=== PATIENT | male | born 1945 | race Caucasian/White ===

== ENCOUNTER 2020-04-15 00:26 | Outpatient (CLI) | payer MEDICARE, SELFPAY ==
[2020-04-15 18:58] LABS: SARS-CoV-2 RNA PCR Negative
== END 2020-04-15 00:27 | disposition home or self-care (01) ==
LOC: ANHCOVIDDT 00:26
PROVIDERS: PCP Internal Medicine; Visit Provider Internal Medicine Gastroenterology
DX: Z01.818 Encounter for other preprocedural examination (principal); Z11.59 Encounter for screening for other viral diseases
CPT/HCPCS: 87635; C9803; U0003

== ENCOUNTER 2020-04-17 01:41 | Day surgery (SDC) | payer MEDICARE, SELFPAY ==
[2020-04-08 14:29] VITALS: BMI 28.2
[2020-04-17 08:54] VITALS: BP 145/65; PULSE 77; RESP 18; TEMP 36.6; O2SAT 96; BMI 27.3
--- NOTE | 2020-04-17 09:02 | PM.HPGS ---
History of Present Illness History of Present Illness Consent: Risks, benefits, and alternatives have been discussed and questions answered. Patient agrees to proceed with procedure. Chief complaint: HX of Polyps Narrative: Willie Randolph is a 75 year old W male referred for screening colonoscopy secondary history of adenomatous polyps. Patient had 2 adenomas removed 5 years ago. Returns now for surveillance examination. Patient is asymptomatic. [facility] Social History Social History (Updated 03/20/20 @ 10:08 by Sofia Parks [facility]) Smoking status: Never smoker Alcohol intake: current Substance use: never Gender identity (if verbalized by the patient): Male Meds Home Medications and Allergies Home Medications Medication Instructions Recorded Confirmed Type simvastatin 40 mg tablet 40 mg PO DAILY 03/05/20 04/17/20 History Allergies Allergy/AdvReac Type Severity Reaction Status Date / Time No Known Allergies Allergy Verified 04/17/20 08:54 Vital Signs Vital Signs - 24 hr 04/17/20 08:54 Temperature 36.6 C Pulse Rate 77 Respiratory Rate 18 Blood Pressure 145/65 H Pulse Oximetry 96 Exam Const: Orientation/consciousness: patient oriented x3 Resp: Auscultation: clear to auscultation bilaterally Cardio: Rate: regular rate Rhythm: regular rhythm Heart sounds: no murmurs GI: GI Palp: Yes Soft to palpation, No Tenderness to palpation present (GI), Yes No hepatosplenomegaly present and No Palpable mass present Auscultation: normal bowel sounds Neuro: General: patient oriented x3 and no focal motor deficits Extrem: General: no pedal edema Assessment and Plan Additional Plan Screening colonoscopy secondary history of adenomatous polyps
[2020-04-17] MEDS: LACTATED RINGERS 1,000 ML 150 ML IV CONT (09:10)
--- NOTE | 2020-04-17 09:22 | WPDANESEPPF ---
Anes - Initial Pre Proc Eval Procedure: Operation Date: 04/17/20 10:00 Proposed Procedures p Colonoscopy - Pancho Alonzo MD Date/Time: 04/17/20 09:22 Surgeon: Pancho Alonzo MD Pre Op Diagnosis: HX of Polyps Patient Data Age: 75 Gender: M Height: 6 ft 1 in Weight: 94.1 kg Last Vital Signs Temp 97.8 F 04/17/20 08:54 Pulse 77 04/17/20 08:54 Resp 18 04/17/20 08:54 BP 145/65 H 04/17/20 08:54 Pulse Ox 96 04/17/20 08:54 Allergies Allergy/AdvReac Type Severity Reaction Status Date / Time No Known Allergies Allergy Verified 04/17/20 08:54 Home Medications Medication Instructions Recorded Confirmed Type simvastatin 40 mg tablet 40 mg PO DAILY 03/05/20 04/17/20 History Patient hx anesthesia problems: none Family hx anesthesia problems: none PMFSH Past Medical History Medical History (Updated 04/17/20 @ 09:22 by Gonsalo Lopez MD) Hypercholesterolemia Prostate cancer Surgical History Surgical History Hx of prostatectomy Social History Social History (Updated 03/20/20 @ 10:08 by Sofia Parks CMA) Smoking status: Never smoker Alcohol intake: current Substance use: never Gender identity (if verbalized by the patient): Male Anes - Eval Final PreProcedure Day of Procedure 04/17/20 09:22 Patient weight: obese Heart: regular rate and rhythm Lungs: clear to auscultation Airway: Mallampati scale class II Neurological: alert and oriented Last oral intake: >/= 8 hours ASA classification: III Emergent: no Anesthetic plan: proceed Anesthesia type and monitoring: general GIVS and standard monitoring Informed Consent: The patient's anesthetic plan and its attendant risks and benefits were discussed with the patient/family/POA. Questions were solicited and answers provided to the satisfaction of the patient/family/POA.
[2020-04-17 09:52] VITALS: BP 128/67; PULSE 75; RESP 18; O2SAT 95
[2020-04-17 10:27] VITALS: BP 113/69; PULSE 69; RESP 20; O2SAT 96
[2020-04-17 10:28] VITALS: BP 113/78; PULSE 70; RESP 22; O2SAT 96
== END 2020-04-17 10:39 | disposition home or self-care (01) ==
PROVIDERS: PCP Internal Medicine; Visit Provider Internal Medicine Gastroenterology
PROC: 0DJD8ZZ Inspection of Lower Intestinal Tract, Via Natural or Artificial Opening Endoscopic (ICD-10-PCS; CPT 45378; principal; 2020-04-17 10:00)
DX: Z12.11 Encounter for screening for malignant neoplasm of colon (principal); D12.5 Benign neoplasm of sigmoid colon; K63.5 Polyp of colon; K57.30 Diverticulosis of large intestine without perforation or abscess without bleeding; K64.8 Other hemorrhoids; E78.00 Pure hypercholesterolemia, unspecified; Z85.46 Personal history of malignant neoplasm of prostate; E66.9 Obesity, unspecified; Z68.27 Body mass index [BMI] 27.0-27.9, adult
CPT/HCPCS: 45385; 87635; 88305; C9803; J2704; J7120; U0003

== ENCOUNTER 2023-09-12 07:00 | Outpatient (NON) | payer MEDICARE, SELFPAY | END 2023-09-12 07:01 | disposition home or self-care (01) | PROVIDERS: PCP Internal Medicine; Visit Provider Internal Medicine Gastroenterology | DX: Z12.11 Encounter for screening for malignant neoplasm of colon (principal) | CPT/HCPCS: 88305 ==

== ENCOUNTER 2023-09-12 09:43 | Day surgery (SDC) | payer MEDICARE, SELFPAY ==
[2023-09-07 09:28] VITALS: BMI 27.3
--- NOTE | 2023-09-12 09:33 | P.PNAN_ITS ---
Anes - Initial Pre Proc Eval Procedure: Operation Date: 09/12/23 14:30 Proposed Procedures p Colonoscopy - Anastacio Mcgarry MD Date/Time: 09/12/23 09:33 Surgeon: Anastacio Mcgarry MD Pre Op Diagnosis: History of Polyps Patient Data Age: 78 Gender: M Height: 1.85 m Weight: 94 kg Allergies Allergy/AdvReac Type Severity Reaction Status Date / Time No Known Allergies Allergy Verified 09/12/23 10:10 Home Medications Medication Instructions Recorded Confirmed Type simvastatin 40 mg tablet 40 mg PO DAILY 03/05/20 09/07/23 History Patient hx anesthesia problems: none Family hx anesthesia problems: none Results Review: All pre-operative results and documents have been reviewed as part of the pre- operative evaluation. PMFSH Past Medical History Medical History (Updated 04/17/20 @ 09:22 by Gonsalo Lopez MD) Hypercholesterolemia Prostate cancer Surgical History Surgical History Hx of prostatectomy Social History Social History (Updated 03/20/20 @ 10:08 by Sofia Parks CMA) Smoking status: Never smoker Alcohol intake: current Alcohol use details: wine daily Substance use: never Substance use type: does not use Living arrangements: with family Occupation/Education: retired Gender identity (if verbalized by the patient): Male Spiritual care concerns: No Anes - Eval Final PreProcedure Day of Procedure 09/12/23 09:33 Patient weight: overweight Heart: regular rate and rhythm Lungs: clear to auscultation Airway: Mallampati scale class II Neurological: alert and oriented Last oral intake: >/= 8 hours ASA classification: III Emergent: no Anesthetic plan: proceed Anesthesia type and monitoring: general GIVS and standard monitoring Results Review: All pre-operative results and documents have been reviewed as part of the pre- operative evaluation. Informed Consent: The patient's anesthetic plan and its attendant risks and benefits were discussed with the patient/family/POA. Questions were solicited and answers provided to the satisfaction of the patient/family/POA.
[2023-09-12 10:11] VITALS: BP 142/81; PULSE 93; RESP 16; TEMP 36.9; O2SAT 96
[2023-09-12] MEDS: LACTATED RINGERS 1,000 ML 150 ML IV CONT (10:21)
--- NOTE | 2023-09-12 11:24 | PM.HPGS ---
History of Present Illness History of Present Illness Consent: Risks, benefits, and alternatives have been discussed and questions answered. Patient agrees to proceed with procedure. Chief complaint: History of Polyps Narrative: Willie Randolph is a 78 year old male referred for colon cancer screening. He has history of polyps. Two tubular adenomas were removed about 8 years ago. Review of Systems Review of Systems: All systems reviewed & are unremarkable except as noted in HPI and below PMFSH Past Medical History Medical History Hypercholesterolemia Prostate cancer Surgical History Surgical History Hx of prostatectomy Social History Social History Smoking status: Never smoker Alcohol intake: current Alcohol use details: wine daily Substance use: never Substance use type: does not use Living arrangements: with family Occupation/Education: retired Gender identity (if verbalized by the patient): Male Spiritual care concerns: No Meds Home Medications and Allergies Home Medications Medication Instructions Recorded Confirmed Type simvastatin 40 mg tablet 40 mg PO DAILY 03/05/20 09/07/23 History Allergies Allergy/AdvReac Type Severity Reaction Status Date / Time No Known Allergies Allergy Verified 09/12/23 10:10 Vital Signs Vital Signs - 24 hr 09/12/23 10:11 Temperature 36.9 C Pulse Rate 93 Respiratory Rate 16 Blood Pressure 142/81 H Pulse Oximetry 96 Oxygen Delivery Room Air Exam Const: General: alert Orientation/consciousness: patient oriented x3 Resp: Auscultation: clear to auscultation bilaterally Cardio: Rhythm: regular rhythm GI: GI Palp: Yes Soft to palpation and No Tenderness to palpation present (GI) Neuro: General: patient oriented x3 Assessment and Plan Assessment and plan (1) Colon cancer screening: Code(s): Z12.11 - Encounter for screening for malignant neoplasm of colon Status: Acute Assessment and Plan: Colonoscopy with possible biopsy or polypectomy or cautery or injection of substances.
[2023-09-12] MEDS: SIMETHICONE ORAL SUSPENSION 20 MG/0.3 ML 30 ML BOTTLE 0.6 ML IRRIGATION (11:44)
[2023-09-12 11:53] VITALS: BP 101/67; PULSE 80; RESP 18; O2SAT 96
[2023-09-12 12:03] VITALS: BP 116/66; PULSE 74; RESP 18; O2SAT 96
[2023-09-12 12:13] VITALS: BP 122/70; PULSE 77; RESP 18; O2SAT 97
--- NOTE | 2023-09-12 14:18 | WPDANESPN ---
Anes - Prog Note Post-Op Date/Time: 09/12/23 14:18 Cardiovascular status: normal Respiratory status: normal Airway patency: baseline Mental status: baseline Post-Op hydration status: normal Vital Signs: Last Vital Signs Temp 36.9 C 09/12/23 10:11 Pulse 77 09/12/23 12:13 Resp 18 09/12/23 12:13 BP 122/70 09/12/23 12:13 Pulse Ox 97 09/12/23 12:13 O2 Del Method Room Air 09/12/23 12:13 Pain Score (VAS): 0 I/O: Intake & Output 09/11/23 09/12/23 09/12/23 23:59 07:59 15:59 Intake Total 500 Balance 500 Post-procedural complaints: none Patient Feedback: Patient satisfied with anesthetic care. Other Findings: Patient vital signs back to baseline. Patient denies nausea and vomiting. Patient's pain under control. Patient OK for discharge.
== END 2023-09-12 12:35 | disposition home or self-care (01) ==
PROVIDERS: PCP Internal Medicine; Visit Provider Internal Medicine Gastroenterology
PROC: 0DJD8ZZ Inspection of Lower Intestinal Tract, Via Natural or Artificial Opening Endoscopic (ICD-10-PCS; CPT 45378; principal; 2023-09-12 14:30)
DX: Z86.010 Personal history of colon polyps (principal); K62.1 Rectal polyp; K57.30 Diverticulosis of large intestine without perforation or abscess without bleeding
CPT/HCPCS: 45385